=== PATIENT | male | born 1995 ===

== ENCOUNTER 2018-05-15 20:26 | Emergency (ER) | payer SELFPAY ==
[2018-05-15 20:37] VITALS: BP 116/64; PULSE 75; RESP 16; TEMP 98.5; O2SAT 100
--- NOTE | 2018-05-15 21:05 | C.PDOC ---
History Of Present Illness 22 y/o male presents to the ED for evaluation of right 5th finger injury sustained 1-1.5 hours prior to arrival. Patient states he was playing basketball , tried to block a pass, and accidentally jammed the finger. He presents to the ED with +deformity to the right 5th finger. No prior history of injury to the hand. Patient denies any numbness, tingling, or focal weakness. Time Seen by Provider: 05/15/18 20:47 Chief Complaint (Nursing): Finger,Hand,&Wrist History Per: Patient History/Exam Limitations: no limitations Onset/Duration Of Symptoms: Hrs Current Symptoms Are (Timing): Still Present Past Medical History Reviewed: Historical Data, Nursing Documentation, Vital Signs Vital Signs: Last Vital Signs Temp 98.5 F 05/15/18 20:30 Pulse 75 05/15/18 20:30 Resp 16 05/15/18 20:30 BP 116/64 05/15/18 20:30 Pulse Ox 100 05/15/18 22:02 - Medical History PMH: Anxiety, Asthma Surgical History: Tonsillectomy (chilhood) Family History: States: No Known Family Hx - Social History Hx Alcohol Use: No Hx Substance Use: Yes - Immunization History Hx Tetanus Toxoid Vaccination: Yes Hx Influenza Vaccination: No Hx Pneumococcal Vaccination: Yes Review Of Systems Except As Marked, All Systems Reviewed And Found Negative. Musculoskeletal: Positive for: Hand Pain (right 5th digit pain + deformity) Skin: Negative for: Lesions, Bruising Neurological: Negative for: Weakness, Numbness, Incoordination Physical Exam - Physical Exam Appears: Well, Non-toxic, No Acute Distress Skin: Warm, Dry Head: Atraumatic, Normacephalic Eye(s): bilateral: Normal Inspection Extremity: Tenderness (to right 5th digit), Capillary Refill (less than 2 sec), Deformity (+ obvious deformity to right 5th digit) Pulses: Left Radial: Normal, Right Radial: Normal Neurological/Psych: Oriented x3, Normal Speech, Normal Sensation, Other (No focal deficits) ED Course And Treatment O2 Sat by Pulse Oximetry: 100 (RA) Pulse Ox Interpretation: Normal Medical Decision Making Medical Decision Making: Plan: * Right Hand X-Ray 5th Digit * Motrin 600 mg PO Xrays show (+) dislocation. Finger was cleansed with betadine. Digital block was performed by TONY Wagner using Lidocaine 2%. Finger was reduced by me with success. Post reduction films show finger was reduced and finger splint was applied by me. Disposition - Disposition Referrals: Andrey Hess MD [Staff Provider] - Disposition: HOME/ ROUTINE Disposition Time: 21:56 Condition: STABLE Additional Instructions: Follow up with the Hand Surgeon within 1-2 days. return if worsened. Prescriptions: Ibuprofen [Motrin] 600 mg PO TID #21 tab Instructions: Finger Dislocation (DC) Forms: [employer] [facility] (M[place]itian), Work Excuse - Clinical Impression Clinical Impression: Finger dislocation - PA / ADMINISTRATIVE SALES ASSISTANT / Resident Statement MD/DO has reviewed & agrees with the documentation as recorded. - Scribe Statement The provider has reviewed the documentation as recorded by the Scribe (Grisel Corral) All medical record entries made by the Scribe were at my direction and personally dictated by me. I have reviewed the chart and agree that the record accurately reflects my personal performance of the history, physical exam, medical decision making, and the department course for this patient. I have also personally directed, reviewed, and agree with the discharge instructions and disposition.
[2018-05-15] MEDS ORDERED: Lidocaine 2% Inj (20ml) INFIL ONE (21:17)
[2018-05-15] MEDS ORDERED: Lidocaine 2% MPF (5 ml) Inj ONE (21:21)
--- NOTE | 2018-05-16 08:34 | RAD ---
Date of service: 05/15/2018 PROCEDURE: Right small finger radiographs. HISTORY: injury and deformity COMPARISON: None. TECHNIQUE: AP radiograph of the right hand, as well as spot oblique and lateral images of small finger were obtained. FINDINGS: RIGHT SMALL FINGER: No acute fracture. JOINTS: Ulnar and posterior dislocation of 5th digit at the level of the proximal interphalangeal joint. SOFT TISSUES: Normal. OTHER FINDINGS: None. IMPRESSION: Ulnar and posterior dislocation of the 5th digit as described above.
--- NOTE | 2018-05-16 08:47 | RAD ---
Date of service: 05/15/2018 PROCEDURE: Right small finger radiographs. HISTORY: POST REDUCTION FILMS COMPARISON: Right 5th digit radiographs performed approximately 50 minutes prior. TECHNIQUE: AP radiograph of the right hand, as well as spot oblique and lateral images of small finger were obtained. FINDINGS: RIGHT SMALL FINGER: No acute fracture. JOINTS: Interval reduction of 5th proximal interphalangeal joint dislocation. SOFT TISSUES: Normal. OTHER FINDINGS: None. IMPRESSION: Interval reduction of 5th proximal interphalangeal joint dislocation. No acute fracture.
== END 2018-05-15 22:07 | disposition home or self-care (01) ==
LOC: C.ER 20:26
DX: S63.286A Dislocation of proximal interphalangeal joint of right little finger, initial encounter (principal); W21.05XA Struck by basketball, initial encounter; Y93.67 Activity, basketball